=== PATIENT | male | born 2000 | race Caucasian/White ===

== ENCOUNTER 2021-08-11 15:09 | Emergency (ER) | payer OTHER, MEDICAID ==
[2021-08-11 16:47] LABS: BASOPHIL 0.4 % (0-2); EOSINOPHIL 0.9 % (0-5); HCT 46.9 % (42.0-52.0); HGB 16.3 g/dl (13.2-18.0); LYMPHOCYTE 18.6 % (15-48); MCH 30.6 pg (25.0-31.0); MCHC 34.8 g/dL (32.0-36.0); MONOCYTE 7.3 % (0-12); MPV 10.3 fL (6.0-9.5); NEUTROPHIL 72.4 % (41-80); NRBC 0; PLT 275 K/uL (150-400); RBC 5.33 M/uL (4.70-6.00); RDW 12.5 % (11.5-14.0); WBC 9.9 K/uL (4.0-10.5)
[2021-08-11 16:51] LABS: INR 1.08 (0.9-1.2); PROTHROMBIN TIME 13.4 SECONDS (11.8-13.4); PTT 24.2 SECONDS (24.4-34.7)
[2021-08-11 16:53] LABS: ALBUMIN 4.3 g/dL (3.4-5.0); BILIRUBIN - TOTAL 0.4 mg/dL (0.2-1.0); BUN/CREAT RATIO (CALC) 7.4 RATIO; CREATININE 0.94 mg/dL (0.67-1.17); GLOBULIN (CALCULATION) 3.4 g/dL; MAGNESIUM 1.8 mg/dL (1.8-2.4); POTASSIUM 3.9 mmol/L (3.5-5.1); TOTAL PROTEIN 7.7 g/dL (6.4-8.2)
[2021-08-11 17:50] LABS: BILIRUBIN NEGATIVE (NEGATIVE); BLOOD NEGATIVE Ery/uL (NEGATIVE); CLARITY CLEAR (CLEAR); COLOR YELLOW (YELLOW); GLUCOSE (U) NORMAL (NORMAL); LEUKOCYTES NEGATIVE Leu/uL (NEGATIVE); NITRITE NEGATIVE (NEGATIVE); PROTEIN NEGATIVE (NEGATIVE); SPECIFIC GRAVITY 1.015 (1.001-1.030); UROBILINOGEN 0.2 mg/dL (0.2-1.0); pH 7.5 (5.0-9.0)
[2021-08-11] MEDS ORDERED: NORCO 5-325 TA1 EACH PO (17:57)
[2021-08-11] MEDS ORDERED: ROBAXIN750 MG PO (17:57)
== END 2021-08-11 18:11 | disposition home or self-care (01) ==
LOC: FER 15:09
PROVIDERS: Emergency Medicine
DX: S39.012A Strain of muscle, fascia and tendon of lower back, initial encounter (principal); S30.1XXA Contusion of abdominal wall, initial encounter; V49.50XA Passenger injured in collision with unspecified motor vehicles in traffic accident, initial encounter
CPT/HCPCS: 36415; 70450; 71260; 72125; 72128; 72131; 80053; 81003; 82550; 82728; 83690; 83735; 83880; 84145; 84484; 85025; 85610; 85730; 93005; J2405; J3010; J7030; Q9967